=== PATIENT | female | born 1975 | race Two or more races ===

== ENCOUNTER 2018-05-12 10:32 | Emergency (ER) | payer OTHER ==
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
[2018-05-12 12:07] VITALS: BP 97/73
== END 2018-05-12 11:58 | disposition home or self-care (01) ==
LOC: CED 10:32
DX: S46.002A Unspecified injury of muscle(s) and tendon(s) of the rotator cuff of left shoulder, initial encounter (principal); X58.XXXA Exposure to other specified factors, initial encounter; Z88.0 Allergy status to penicillin
CPT/HCPCS: 99283-ER